=== PATIENT | male | born 1970 | race American Indian/Alaskan Native ===

== ENCOUNTER 2019-11-29 10:24 | Emergency (ER) | payer MEDICAID ==
--- NOTE | 2019-11-29 11:21 | Emergency Department Report ---
ED General Adult HPI - General Chief complaint: Dyspnea/Respdistress Stated complaint: ELIOT/ HYPERTENSION/EVALUATION Time Seen by Provider: 11/29/19 10:54 Source: family, EMS Mode of arrival: Stretcher Limitations: Other - History of Present Illness Initial comments: Mr. Alicia is a 49-year-old male with history of cerebral palsy. Mother was concerned that he appeared to be gasping for breath. When asked about pain, he points to his stomach. He is nonverbal. Recently diagnosed with GERD. History otherwise is limited. -: Sudden, This morning Consistency: now resolved Improves with: none Worsens with: none Associated Symptoms: other (Appears to have shortness of breath and pointing at stomach) - Related Data Previous Rx's Medication Instructions Recorded Last Taken Type Acetaminophen [Tylenol] 650 mg PO Q6HR PRN #30 capsule 09/04/19 Unknown Rx Omeprazole 40 mg PO DAILY #30 capsule. 09/04/19 Unknown Rx Allergies Allergy/AdvReac Type Severity Reaction Status Date / Time No Known Allergies Allergy Unverified 09/03/19 14:52 ED Review of Systems ROS: Stated complaint: ELIOT/ HYPERTENSION/EVALUATION Other details as noted in HPI Comment: Unobtainable due to pts medical conditions (Patient is nonverbal) ED Past Medical Hx - Past Medical History Previous Medical History?: Yes Hx GERD: Yes Additional medical history: cerebral palsy. deaf/mute. mentally disabled - Surgical History Past Surgical History?: No Additional Surgical History: unknown - Social History Smoking Status: Never Smoker Substance Use Type: None - Medications Home Medications: Home Medications Medication Instructions Recorded Confirmed Last Taken Type Acetaminophen [Tylenol] 650 mg PO Q6HR PRN #30 capsule 09/04/19 Unknown Rx Omeprazole 40 mg PO DAILY #30 capsule. 09/04/19 Unknown Rx ED Physical Exam - General Limitations: Other General appearance: alert, in no apparent distress, other (Makes good eye contact) - Head Head exam: Present: atraumatic, normocephalic - Eye Eye exam: Present: normal appearance - ENT ENT exam: Present: mucous membranes moist - Neck Neck exam: Present: normal inspection, full ROM - Respiratory Respiratory exam: Present: normal lung sounds bilaterally. Absent: respiratory distress, wheezes, rales, rhonchi - Cardiovascular Cardiovascular Exam: Present: regular rate, normal rhythm. Absent: systolic murmur, diastolic murmur, rubs, gallop - GI/Abdominal GI/Abdominal exam: Present: soft, normal bowel sounds. Absent: distended, tenderness, guarding, rebound - Rectal Rectal exam: Present: deferred - Extremities Exam Extremities exam: Present: normal inspection - Back Exam Back exam: Present: normal inspection - Neurological Exam Neurological exam: Present: alert - Psychiatric Psychiatric exam: Present: normal affect, normal mood - Skin Skin exam: Present: warm, dry, intact, normal color. Absent: rash ED Course Vital Signs 11/29/19 11/29/19 11/29/19 10:51 11:01 11:27 Temperature Pulse Rate 79 88 Respiratory 20 12 Rate Blood Pressure Blood Pressure 122/62 [Left] O2 Sat by Pulse 36 L 99 99 Oximetry 11/29/19 11/29/19 11/29/19 12:00 13:00 14:00 Temperature Pulse Rate 75 74 79 Respiratory 18 14 16 Rate Blood Pressure 114/79 119/77 112/71 Blood Pressure [Left] O2 Sat by Pulse 95 97 97 Oximetry 11/29/19 14:01 Temperature 97.6 F Pulse Rate Respiratory Rate Blood Pressure Blood Pressure [Left] O2 Sat by Pulse Oximetry ED Medical Decision Making - Lab Data Result diagrams: 11/29/19 11:20 11/29/19 11:20 - Radiology Data Radiology results: report reviewed Chest radiograph: No acute findings according to radiology impression - Medical Decision Making Mr. Alicia presents with brief shortness of breath. Appears to be a choking episode. No indication of aspiration or pneumonia. Discharged to the care of his mother. Critical care attestation.: If time is entered above; I have spent that time in minutes in the direct care of this critically ill patient, excluding procedure time. ED Disposition Clinical Impression: SOB (shortness of breath) Disposition: DC-01 TO HOME OR SELFCARE Is pt being admited?: No Does the pt Need Aspirin: No Referrals: PRIMARY CARE,MD [Primary Care Provider] - 3-5 Days
--- NOTE | 2019-11-29 12:10 | XRay Report ---
CHEST 1 VIEW INDICATION: shortness of breath. COMPARISON: 09/03/2019. FINDINGS: Support devices: None. Heart: Within normal limits. Lungs/Pleura: No acute air space or interstitial disease. Additional findings: None. IMPRESSION: No acute abnormality. Signer Name: Adebayo Rivero MD Signed: 11/29/2019 12:06 PM Workstation Name: [id number]
[2019-11-29 12:17] LABS: Alanine Aminotransferase 13 units/L (7-56); Albumin 4.5 g/dL (3.9-5); BUN/Creatinine Ratio 24; Blood Urea Nitrogen 22 mg/dL (9-20); Calcium 9.5 mg/dL (8.4-10.2); Hemolysis Index 6
[2019-11-29 12:29] LABS: Basophils % (Auto) 0.3 % (0.0-1.8); Eosinophils % (Auto) 0.4 % (0.0-4.3); Hemoglobin 14.5 gm/dl (11.8-15.2); Lymphocytes # (Auto) 1.3 K/mm3 (1.2-5.4); Lymphocytes % (Auto) 27.6 % (13.4-35.0); Mean Corpuscular HGB Conc 34 % (32-34); Mean Corpuscular Volume 93 fl (84-94); Monocytes # (Auto) 0.4 K/mm3 (0.0-0.8); Monocytes % (Auto) 8.2 % (0.0-7.3); Platelet Count 275 K/mm3 (140-440); Red Blood Count 4.64 M/mm3 (3.65-5.03); Red Cell Distribution Width 12.8 % (13.2-15.2)
[2019-11-29 14:01] VITALS: BP 112/71
== END 2019-11-29 15:00 | disposition home or self-care (01) ==
LOC: ED 10:24
DX: R06.02 Shortness of breath (principal); R10.9 Unspecified abdominal pain; K21.9 Gastro-esophageal reflux disease without esophagitis; G80.9 Cerebral palsy, unspecified; Z79.899 Other long term (current) drug therapy
CPT/HCPCS: 36415; 71045; 80053; 83690; 85025

== ENCOUNTER 2020-02-06 12:44 | Emergency (ER) | payer MEDICAID ==
[2020-02-06 12:57] VITALS: BP 116/78
--- NOTE | 2020-02-06 13:53 | Emergency Department Report ---
Chief Complaint: Medical Clearance Stated Complaint: BODY PAIN Time Seen by Provider: 02/06/20 13:45 - HPI History of Present Illness: History is provided by patient's mother due to the fact that patient has cerebral palsy pt is a 49 yo brought in by his mother with complaints of not being able to sit still in his CT scanner. The mother states that Dr. Markos Sykes his primary care doctor ordered for him to have a CT head with and without contrast. She states that he has been having a right-sided headache for a month and that is why his doctor ordered the CT. She states that they went to the outpatient imaging center and due to his medical condition he was not able to sit still for the scan. The mother states that the outpatient imaging center advised for him to come to the ER. She states that they did not speak to his primary care doctor and she did not call the PCP to discuss not being able to sit still. He has had no acute traumatic injury. This headache has been ongoing for a month. Vitals are stable Discussed case with Dr. Brayden Ash, ER attending who recommended to MSE the patient and to have them follow-up with the primary care doctor - Exam Vital Signs: Vital Signs 02/06/20 12:56 Temperature 98.8 F Pulse Rate 106 H Respiratory 20 Rate Blood Pressure 116/78 O2 Sat by Pulse 98 Oximetry MSE screening note: Focused history and physical exam performed. ED Disposition for MSE Clinical Impression: Encounter for medical screening examination Disposition: Z-07 MED SCREENING EXAM-LEFT Is pt being admited?: No Does the pt Need Aspirin: No Condition: Stable Referrals: PRIMARY CARE, [Primary Care Provider] - 3-5 Days
== END 2020-02-06 14:30 | disposition left against medical advice (07) ==
LOC: ED 12:44
DX: R51 Headache (principal); Z00.00 Encounter for general adult medical examination without abnormal findings; K21.9 Gastro-esophageal reflux disease without esophagitis; G80.9 Cerebral palsy, unspecified; H91.3 Deaf nonspeaking, not elsewhere classified; F99 Mental disorder, not otherwise specified
CPT/HCPCS: 99281

== ENCOUNTER 2020-02-28 12:12 | Emergency (ER) | payer MEDICAID ==
--- NOTE | 2020-02-28 12:53 | Event Note ---
ED Screening Note ED Screening Note: history provided by mother left sided headache 2-3 months pain down the left side had a CT head scan by his doctor which was normal per mother and did labs which mother states was normal no fall or injury he has continued to have pain has been taking fioricet and tylenol with codeine PMHx born with jaundice and mother states CP no allergies to meds This initial assessment/diagnostic orders/clinical plan/treatment(s) is/are subject to change based on patients health status, clinical progression and re- assessment by fellow clinical providers in the ED. Further treatment and workup at subsequent clinical providers discretion. Patient/guardian urged not to elope from the ED as their condition may be serious if not clinically assessed and managed.
[2020-02-28] MEDS ORDERED: LORazepam 2 MG/ML VIAL IV ONE (16:51)
[2020-02-28] MEDS ORDERED: MORPHINE 4 MG/1 ML INJ IV ONE (16:51)
[2020-02-28] MEDS ORDERED: ONDANSETRON 4 MG/2 ML INJ IV ONE (16:51)
[2020-02-28] MEDS ORDERED: SODIUM CHLORIDE 0.9% 1000 ML 1,000 ML IV ONE (16:54)
--- NOTE | 2020-02-28 16:56 | Emergency Department Report ---
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 Patient brought to the emergency room by his mother who acts as a caregiver. Patient is not communicating well secondary to his above-mentioned diagnosis. His mother is giving history. She stated that for the last 3 months he started to have headache, mainly to the left side of the head and radiate down to his left side upper and lower extremity. Mother denied any recent injury or head trauma. She also denied any fever or chills. No nausea or vomiting. She also denied any recent weakness, numbness or tingling sensation or any change in his neurological status. When I asked the patient about the location of his pain he pointed to the left side of his head to his neck and to the left upper and lower extremity side. Allergies/Adverse Reactions: Allergies No Known Allergies Allergy (Verified 02/06/20 12:49) Home Medications: Ambulatory Orders Acetaminophen [Tylenol] 650 mg PO Q6HR PRN #30 capsule 09/04/19 Omeprazole 40 mg PO DAILY #30 capsule. 09/04/19 ED Review of Systems ROS: Stated complaint: PAIN IN HEAD Other details as noted in HPI Comment: All other systems reviewed and negative Constitutional: denies: chills, fever Respiratory: denies: cough, shortness of breath, SOB with exertion Cardiovascular: denies: chest pain Gastrointestinal: denies: abdominal pain, nausea Musculoskeletal: denies: back pain Neurological: headache. denies: weakness, numbness, paresthesias ED Past Medical Hx - Past Medical History Previous Medical History?: Yes Hx GERD: Yes Additional medical history: cerebral palsy. deaf/mute. mentally disabled - Surgical History Past Surgical History?: Yes Additional Surgical History: unknown - Social History Smoking Status: Current Some Day Smoker Substance Use Type: None - Medications Home Medications: Home Medications Medication Instructions Recorded Confirmed Last Taken Type Acetaminophen [Tylenol] 650 mg PO Q6HR PRN #30 capsule 09/04/19 Unknown Rx Omeprazole 40 mg PO DAILY #30 capsule. 09/04/19 Unknown Rx ED Physical Exam - General Limitations: No Limitations General appearance: alert, in distress (Moderate distress secondary to pain from headache and neck pain.) - Head Head exam: Present: atraumatic, normocephalic, normal inspection - Eye Eye exam: Present: normal appearance - ENT ENT exam: Present: normal exam, normal orophraynx - Neck Neck exam: Present: normal inspection, full ROM. Absent: tenderness, meningismus, lymphadenopathy, thyromegaly - Respiratory Respiratory exam: Present: normal lung sounds bilaterally - Cardiovascular Cardiovascular Exam: Present: regular rate, normal rhythm, normal heart sounds - GI/Abdominal GI/Abdominal exam: Present: soft, normal bowel sounds. Absent: distended, tenderness, guarding, rebound, rigid, organomegaly, mass, bruit, pulsatile mass, hernia - Extremities Exam Extremities exam: Present: normal inspection, full ROM - Back Exam Back exam: Present: normal inspection, full ROM. Absent: CVA tenderness (R), CVA tenderness (L), paraspinal tenderness, vertebral tenderness - Neurological Exam Neurological exam: Present: alert - Psychiatric Psychiatric exam: Present: agitated, anxious - Skin Skin exam: Present: warm, intact, normal color ED Course Vital Signs 02/28/20 02/28/20 02/28/20 12:38 18:33 18:38 Temperature 98.7 F Pulse Rate 93 H 101 H Respiratory 20 15 Rate Blood Pressure 116/82 Blood Pressure 124/74 [Left] O2 Sat by Pulse 98 98 98 Oximetry ED Medical Decision Making - Lab Data Result diagrams: 02/28/20 16:59 02/28/20 16:59 - Radiology Data Radiology results: report reviewed - Medical Decision Making Patient is 49 years old male with history of cerebral palsy secondary to ke rnicterus. Patient brought to the emergency room by his mother who acts as a caregiver. Patient is not communicating well secondary to his above-mentioned diagnosis. His mother is giving history. She stated that for the last 3 months he started to have headache, mainly to the left side of the head and radiate down to his left side upper and lower extremity. Mother denied any recent injury or head trauma. She also denied any fever or chills. No nausea or vomiting. She also denied any recent weakness, numbness or tingling sensation or any change in his neurological status. When I asked the patient about the location of his pain he pointed to the left side of his head to his neck and to the left upper and lower extremity side. Patient received morphine, Zofran and Ativan. CT brain and CT cervical spine with and without contrast performed. CT brain is negative for acute finding h owever CT cervical spine showed multiple disc protrusion different level C3 and 4, C5 and 6 C7 and T1. Patient mother stated that he looks much better after the pain medicine. At this moment there is no indication for hospital admission or immediate transfer since this problem has been going on for approximately 2 months now. Mother advised to follow-up with his primary care physician in the next 2 to 3 days for a referral to a neurosurgeon and spine surgeon in the next few days. Patient given prescription for prednisone and tramadol and Zofran. Mother informed to bring the patient if his symptoms are not improved or getting worse. Critical care attestation.: If time is entered above; I have spent that time in minutes in the direct care of this critically ill patient, excluding procedure time. ED Disposition Clinical Impression: Cerebral palsy, Acute headache, Neck pain, Protrusion of cervical intervertebral disc Disposition: DC-01 TO HOME OR SELFCARE Is pt being admited?: No Condition: Stable Instructions: Cervical Disc Herniation (ED), Cervical Radiculopathy (ED), Acute Headache (ED) Referrals: DEANDRA MCINTYRE MD [Primary Care Provider] - 3-5 Days
[2020-02-28 17:30] LABS: BUN/Creatinine Ratio 14; Blood Urea Nitrogen 13 mg/dL (9-20); Calcium 9.6 mg/dL (8.4-10.2); Hemolysis Index 9
[2020-02-28 17:37] LABS: Basophils % (Auto) 0.5 % (0.0-1.8); Eosinophils # (Auto) 0.1 K/mm3 (0.0-0.4); Eosinophils % (Auto) 0.7 % (0.0-4.3); Hemoglobin 14.6 gm/dl (11.8-15.2); Lymphocytes # (Auto) 2.6 K/mm3 (1.2-5.4); Lymphocytes % (Auto) 32.6 % (13.4-35.0); Mean Corpuscular HGB Conc 34 % (32-34); Mean Corpuscular Volume 93 fl (84-94); Monocytes # (Auto) 0.6 K/mm3 (0.0-0.8); Monocytes % (Auto) 7.8 % (0.0-7.3); Platelet Count 288 K/mm3 (140-440); Red Cell Distribution Width 12.8 % (13.2-15.2)
[2020-02-28 17:37] LABS: Alanine Aminotransferase 29 units/L (7-56); Albumin 4.7 g/dL (3.9-5)
[2020-02-28 17:51] LABS: Bilirubin,Direct < 0.2 mg/dL (0-0.2)
[2020-02-28 18:39] VITALS: BP 124/74
--- NOTE | 2020-02-28 18:39 | Cat Scan Report ---
NONENHANCED AND CONTRAST-ENHANCED CT SCAN OF THE HEAD: INDICATION / CLINICAL INFORMATION: 49 years Male; MAIN: Cerebral palsy, LT side headache and neck pain. PT unable to cooperate, best sca n possible, [id number] 100ml . TECHNIQUE: Routine CT head without contrast. All CT scans at this location are performed using CT dos e reduction for ALARA by means of automated exposure control. COMPARISON: CT scan of the head from 09/04/2019 FINDINGS: BRAIN / INTRACRANIAL CONTENTS: No acute hemorrhage, mass effect, midline shift, hydrocephalus, or ac kailash, large territorial infarct. No chronic infarct ornormal brain volume and ventricular/sulcal size for age. No significant white matter abnormality. No enhancing parenchymal lesion in the brain CRANIOCERVICAL JUNCTION: No significant abnormality. ORBITS: No significant abnormality of visualized orbits. SINUSES / MASTOIDS: No significant abnormality of the visualized paranasal sinuses or mastoid air cricket ls. ADDITIONAL FINDINGS: None. IMPRESSION: No acute focal parenchymal lesion in the brain No focal area of volume loss in the cerebral hemispheres. Signer Name: Howard Mattson MD Signed: 02/28/2020 6:35 PM Workstation Name: [id number]
--- NOTE | 2020-02-28 18:46 | Cat Scan Report ---
NONENHANCED AND CONTRAST-ENHANCED CT SCAN OF THE CERVICAL SPINE: History: MAIN: Cerebral palsy, headache and LT side neck pain. PT unable to cooperate, best scan po ssible, [id number] 100ml; Technique: Contiguous thin cut axial images obtained through the cervical spine. Sagittal and ferris l reconstructions performed by the technologist. All CT scans at this location are performed using CT dose reduction for ALARA by means of automated exposure control. Findings: No priors. Head turned towards the right side. Foramen magnum is normal. Arch of C1 is slightly anterior to C2. C2-C3 disc space is normal. Nonlateralizing midline disc protrusion is seen at C3-C4 disc level. Neuroforamina are normal. C4-C5 disc space is normal. Shallow midline disc protrusion is seen at C5-C6 disc level. C6-C7 disc space is normal. At C7-T1 disc level, midline shallow disc protrusion is seen. There is no evidence of fracture or traumatic subluxation. Vertebral bodies are normal in height and alignment. No enhancing intradural lesion. Surrounding soft tissues are grossly normal. Impression: Distal towards the right side Intradural lesion Midline disc protrusions at C3-C4 and C5-C6 and C7-T1 disc levels Signer Name: Howard Mattson MD Signed: 02/28/2020 6:42 PM Workstation Name: [id number]
[2020-02-28] MEDS ORDERED: dexAMETHasone 4 MG/ML VIAL IV ONE (19:00)
== END 2020-02-28 19:05 | disposition home or self-care (01) ==
LOC: ED 12:12
DX: G80.9 Cerebral palsy, unspecified (principal); M50.20 Other cervical disc displacement, unspecified cervical region; K21.9 Gastro-esophageal reflux disease without esophagitis; F17.210 Nicotine dependence, cigarettes, uncomplicated; Z79.899 Other long term (current) drug therapy
CPT/HCPCS: 36415; 70470; 72127; 80048; 80076; 85025; 96374; 96375; 99284; J2060; J2270; J2405; J7030; Q9967